=== PATIENT | female | born 1990 | race African-American/Black ===

== ENCOUNTER 2018-09-11 15:21 | Emergency (ER) | payer MEDICAID ==
[~2018-09-11] VITALS: Ht 165.1 cm; Wt 72.6 kg
[~2018-09-11 15:21] MED LIST: BACTRIM DS TAB1 EAC1 ORAL; BACTRIM-DS1 EA PO; NITROFURANTOIN100 MG PO; NKM; [UNRECOGNIZED DRUG - OTHER]
[2018-09-11 15:40] VITALS: BP 121/77
--- NOTE | 2018-09-11 15:40 | NUR ---
ED Nurse Note: COUGH, SORE THROAT, AND BODY ACHES X 3 DAYS AGO.
[2018-09-11] MEDS ORDERED: NKM (15:43)
[2018-09-11] MEDS ORDERED: Lidocaine 2% Visc 15ml soln ORAL ONE (16:00)
[2018-09-11] MEDS ORDERED: PROMETHAZINE-C118 M1 ORAL (16:17)
[2018-09-11] MEDS ORDERED: SUDAFED PE PRE1 EAC3 PO (16:17)
--- NOTE | 2018-09-11 16:18 | Emergency Room Report ---
History of Present Illness General Chief Complaint: Flu Like Symptoms Source: Patient Present Illness HPI 27-year-old female patient presents the ER complaining of flulike symptoms for the past 3 days. Reports generalized muscle aches and pains. Denies vomiting, reports nausea. Reports diarrhea. Denies recent travel outside the country. Denies blood in diarrhea. Reports cough with sputum. Denies history of asthma or heart attack. Reports fever at home, currently afebrile in ER. States his been taking [id number] medications for relief of symptoms. Denies chest pain or shortness of breath. Denies dysuria, hematuria. States did not receive flu vaccine this year. Reports sore throat during this time. Reports is been able to tolerate p.o. fluids without vomiting. Reports cough is worse at night. Patient being seen in the ER with child with similar symptoms. Allergies: Coded Allergies: CIPROFLOXACIN (Unverified Adverse Reaction, Unknown, 09/11/18) VOMIT Patient History Past Medical History: see triage record Last Menstrual Period: 08/15/18 Now: No Reviewed Nursing Documentation: PMH: Agreed; PSxH: Agreed Nursing Documentation-PMH Past Medical History: No Stated History Hx Seizures: Yes Review of Systems All Other Systems: negative except mentioned in HPI Physical Exam Vital Signs Date Time Temp Pulse Resp B/P (MAP) Pulse Ox O2 Delivery O2 Flow Rate FiO2 09/11/18 15:40 98.2 72 16 121/77 99 Room Air Sp02 EP Interpretation: reviewed, normal General Appearance: well appearing, no apparent distress, alert, GCS 15, non- toxic Head: normocephalic, atraumatic Eyes: bilateral eye normal inspection, bilateral eye PERRL ENT: hearing grossly normal, normal pharynx, no angioedema, normal voice, TMs + canals normal, uvula midline, moist mucus membranes, other - Uvula midline, no tonsillar exudates, no pharyngeal erythema Neck: full range of motion, no meningismus, no bony tend Respiratory: lungs clear, normal breath sounds, no rhonchi, no respiratory distress, no accessory muscle use, no wheezing, speaking full sentences Cardiovascular #1: regular rate, rhythm, no edema Gastrointestinal: non tender, soft, no mass, non-distended, no guarding, no rebound Genitourinary: no CVA tenderness Musculoskeletal: back normal, digits/nails normal, gait/station normal, normal range of motion, non-tender Neurologic: alert, oriented x3, responsive, motor strength/tone normal, sensory intact Psychiatric: mood/affect normal Skin: no rash Medical Decision Making PA Attestation Dr. Tinsley is my supervising Physician whom patient management has been discussed with. Diagnostic Impression: Primary Impression: Influenza-like symptoms ER Course Pt presents to ED c/o cough and flu-like symptoms. DDX considered but are not limited to influenza, viral URI, pneumonia, strep throat, rhinitis, sinusitis, otitis media, otitis externa. No meningismus, patient afebrile, low suspicion for meningitis. VITAL SIGNS are WNL, patient is afebrile. ER COURSE: Lungs clear to auscultation, no wheezes, rhonci or rales. patient afebrile. Low suspicion for pneumonia, will not order CXR at this time. no tonsillar exudates, no pharyngeal erythema, history of cough, no fever, no stridor, uvula midline, low suspicion for peritonsillar abscess. Likely viral etiology of symptoms. Symptomatic treatment. drink plenty of fluids. Salt water gargles for sore throat. Followup with PCP for further treatment and/or referral as needed. DISCHARGE: -Rx given for Promethazine syrup for cough sx. CURES reviewed. SE drowsiness, do not take prior to drinking, driving, operating heavy machinery. -Rx given for Sudafed At this time pt is stable for d/c to home. Patient is resting comfortably, in no acute distress, nontoxic appearing. Patient to take medications as instructed Will provide with patient care instructions and any necessary prescriptions. Care plan and follow-up instructions provided. Patient instructed to follow-up with primary care provider in 3 - 5 days. Patient questions asked and answered. Patient reports understanding and agreement to treatment plan. ER precautions given. Patient instructed to return to ER immediately for any new or worsening of symptoms including but not limited to increasing SOB, persistent fever, intractable vomiting. - Please note that this Emergency Department Report was dictated using PAKpainter and grader cork technology software, occasionally this can lead to erroneous entry secondary to interpretation by the dictation equipment. Last Vital Signs Date Time Temp Pulse Resp B/P (MAP) Pulse Ox O2 Delivery O2 Flow Rate FiO2 09/11/18 15:50 72 16 Room Air 09/11/18 15:40 98.2 121/77 99 Disposition: HOME, SELF-CARE Condition: Stable Scripts Guaifen/Phenyleph/Acetaminophn (Sudafed PE Pressure+Pain+Mucus) 1 Each Tablet 1 EACH PO TID, #24 TAB Prov: Joseph Alvarado 09/11/18 Codeine/Promethazine Hcl* (PROMETHAZINE-CODEINE SYRUP*) 118 Ml Syrup 5 ML ORAL Q6H PRN for For Cough, #118 ML 0 Refills Prov: Joseph Alvarado 09/11/18 Patient Instructions: Influenza, Adult, [id number] Additional Instructions: Followup with primary care provider in 3 -5 days. Salt water gargles Take Tylenol for pain and fever symptoms Drink plenty of water. Take medications as directed. SE drowsiness, do not take prior to drinking, driving, operating heavy machinery. Patient questions asked and answered. ER precautions given, patient instructed to return to ER immediately for any new or worsening of symptoms including but not limited to intractable vomiting, difficulty breathing, inability to eat. Joseph Alvarado Sep 11, 2018 16:18
[2018-09-11 16:34] VITALS: BP 133/80
--- NOTE | 2018-09-11 16:34 | NUR ---
ED Nurse Note: Pt cleared by Health Care Provider for discharge. DC instructions/prescription was given and explained to the pt and verbalized understanding of teachings. All medical devices such as ID band removed. Pt is AAO x4, ambulatory and left with all personal belongings.
== END 2018-09-11 16:34 | disposition home or self-care (01) ==
LOC: EMR 16:14
DX: J11.1 Influenza due to unidentified influenza virus with other respiratory manifestations (principal); Z88.1 Allergy status to other antibiotic agents
CPT/HCPCS: 99282

== ENCOUNTER 2019-02-18 20:11 | Emergency (ER) | payer MEDICAID ==
[~2019-02-18] VITALS: Ht 167.6 cm; Wt 72.6 kg
[~2019-02-18 20:11] MED LIST changes: +PROMETHAZINE-C118 M1 ORAL; +SUDAFED PE PRE1 EAC3 PO
--- NOTE | 2019-02-18 20:30 | NUR ---
ED Nurse Note: Pt ambulated to ED from home c/o diarrhea for several days and just wants a rx for an antidiarrhael. A&Ox4
[2019-02-18] MEDS ORDERED: DICYCLOMINE HCL20 M1 PO (20:52)
[2019-02-18] MEDS ORDERED: PROBIOTIC & AC1 EAC1 PO (20:52)
--- NOTE | 2019-02-18 20:53 | Emergency Room Report ---
History of Present Illness General Chief Complaint: Medication Refill Source: Patient Present Illness HPI 28-year-old female presents with acute diarrhea 7 episodes, started today, no aggravating relieving factors, abdominal cramps, moderate severity, generalized , states that her kit has the same symptoms, patient wants an antimotility agent , no fever no chills, no chest pain, no shortness of breath, patient presents for evaluation Allergies: Coded Allergies: CIPROFLOXACIN (Unverified Adverse Reaction, Unknown, 09/11/18) VOMIT Patient History Past Medical History: see triage record Last Menstrual Period: 01/08/19 Now: No Reviewed Nursing Documentation: PMH: Agreed; PSxH: Agreed Nursing Documentation-PMH Past Medical History: No Stated History Hx Seizures: Yes Review of Systems Constitutional: Denies: chills, fever Eye: Denies: blurred vision, double vision ENT: Denies: throat pain, nasal discharge Respiratory: Denies: cough, shortness of breath Cardiovascular: Denies: chest pain, palpitations Gastrointestinal: Reports: abdominal pain, diarrhea; Denies: nausea, vomiting Genitourinary: Denies: dysuria, pain Musculoskeletal: Denies: back pain, muscle pain Skin: Denies: rash, lesions Neurological: Denies: headache, focal weakness Hematologic/Lymphatic: Denies: easy bleeding, easy bruising All Other Systems: negative except mentioned in HPI Physical Exam Vital Signs Date Time Temp Pulse Resp B/P (MAP) Pulse Ox O2 Delivery O2 Flow Rate FiO2 02/18/19 20:20 98.4 73 16 117/75 (89) 96 Room Air Sp02 EP Interpretation: reviewed, normal General Appearance: well appearing, no apparent distress, alert Head: normocephalic, atraumatic Eyes: bilateral eye PERRL, bilateral eye EOMI ENT: uvula midline, moist mucus membranes Neck: supple, thyroid normal, supple/symm/no masses Respiratory: lungs clear, no respiratory distress, no retraction, no accessory muscle use Cardiovascular #1: normal peripheral pulses, regular rate, rhythm, no edema, no gallop, no murmur Gastrointestinal: non tender, soft, no guarding, no rebound Musculoskeletal: normal inspection Neurologic: alert, oriented x3 Psychiatric: mood/affect normal Skin: no rash, warm/dry Medical Decision Making Diagnostic Impression: Primary Impression: Diarrhea ER Course 28-year-old female presents for acute diarrhea, no acute distress, patient's child has the same exact symptoms, patient is currently requesting antidiarrheal medication, patient counseled, no evidence of appendicitis, no evidence of diverticulitis, will provide patient with Bentyl, disposition home with return precautions Counseled on the BRAT diet Last Vital Signs Date Time Temp Pulse Resp B/P (MAP) Pulse Ox O2 Delivery O2 Flow Rate FiO2 02/18/19 20:20 98.4 73 16 117/75 (89) 96 Room Air Disposition: HOME, SELF-CARE Condition: Stable Scripts Lactobac Cmb #3/Fos/Pantethine (PROBIOTIC & ACIDOPHILUS CAP) 1 Each Capsule 1 EACH PO DAILY, #14 CAP Prov: Nate Gerardo MD 02/18/19 Dicyclomine Hcl (DICYCLOMINE HCL) 20 Mg Tablet 20 MG PO TID, #9 TAB Prov: Nate Gerardo MD 02/18/19 Referrals: [facility] Patient Instructions: Dehydration, Adult, [id number], Diarrhea, Adult, Easy- to-Read Additional Instructions: The patient was provided with discharge instructions, notified to follow-up with a primary care doctor and or specialist in the next 24-48 hours, and to return to the ED if they have worsening of their symptoms. Please note that this report is being documented using [employer] technology. This can lead to erroneous entry secondary to incorrect interpretation by the dictating instrument. Nate Gerardo MD Feb 18, 2019 20:53
[2019-02-18 20:59] VITALS: BP 117/75
[2019-02-18 21:10] VITALS: BP 117/75
--- NOTE | 2019-02-18 21:10 | NUR ---
ER DISCHARGE NOTE: Patient is cleared to be discharged per ERMD, pt is aox4, on room air, with stable vital signs. pt was given dc and prescription instructions, pt was able to verbalize understanding, pt id band removed. pt is able to ambulate with steady gait. pt took all belongings.
== END 2019-02-18 21:10 | disposition home or self-care (01) ==
LOC: EMR 21:00
DX: R19.7 Diarrhea, unspecified (principal); Z88.1 Allergy status to other antibiotic agents
CPT/HCPCS: 99282